=== PATIENT | male | born 1990 | race Caucasian/White ===

== ENCOUNTER → 2023-10-13 13:53 | Outpatient (REF) | payer OTHER, SELFPAY ==
--- NOTE | 2023-10-13 14:00 | CA_ITS ---
Transthoracic Echocardiogram Patient (Last, First, Middle): Rajan Murcia, Gender: Male Date of : 1990 Age: 33 Procedure Date: 10/13/2023 Procedure Type: Transthoracic Echocardiogram Location: OP Height: 193.04 cm Weight: 97.52 kg BSA: 2.28 m2 Heart Rate: bpm BP: 116 / 70 mmHg Angle Shear Operator: AMPARO Referring MD: Cooper Calderon MD Symptoms: R06.00 DYSPNEA I48.92 ATRIAL FLUTTER Study Quality: Adequate ECG Rhythm: Sinus bradycardia Conclusions: - Mildly increased left ventricular cavity size. - The left ventricular systolic function is normal. The calculated ejection fraction is 56% by biplane method. - Mildly increased right ventricular cavity size. - No obvious valvular pathology seen on this study. - Moderate plaque is seen in the sino tubular ridge. - The inferior vena cava is dilated and collapses less than 50% with inspiration. Findings Left Ventricle Mildly increased left ventricular cavity size. There is normal left ventricular wall thickness. The left ventricular systolic function is normal. The calculated ejection fraction is 56% by biplane method. There is no evidence of regional wall motion abnormalities. Diastolic function is normal for age. LV peak GLS -21.6% (normal). Right Ventricle Mildly increased right ventricular cavity size. There is normal right ventricular systolic function. Atria Both atria are normal in size. Aortic Valve There is a normal trileaflet aortic valve. There is no aortic valve stenosis. There is no aortic valve regurgitation. Mitral Valve The mitral valve appears normal. There is no mitral valve regurgitation. There is no mitral valve stenosis. Pulmonic Valve The pulmonic valve is likely normal. Tricuspid Valve There is trace tricuspid valve regurgitation. There is no evidence of pulmonary hypertension. Great Vessels The asc aorta and aortic arch are normal in size. Moderate plaque is seen in the sino tubular ridge. Venous The inferior vena cava is dilated and collapses less than 50% with inspiration. Pericardium/Pleural There is no evidence of pericardial effusion. Prior Study Comparison No prior study available for comparison. Recommendations, Care & Conclusions No obvious valvular pathology seen on this study. Measurements 2D Linear Measurements IVSd: 0.84 0.6-0.9/0.6-1.0 cm LVIDd: 6.01 3.9-5.3/4.2-5.9 cm LVIDd Index: 2.64 2.4-3.2/2.2-3.1 cm/m2 LVIDs: 3.89 2.0-3.6 cm LVPWd: 0.86 0.7-1.1 cm LA Diam: 4.10 2.7-3.8/3.0-4.0 cm LAIDs Index: 1.80 1.5-2.3 cm/m2 LV Mass: 250.51 67-162/88-224 g LV Mass Index: 109.87 43-95/49-115 g/m2 LVOT Diam: 2.50 3.0+(-)1.3 cm 2D Systolic Function EF 4C: 53.70 >55% EF 2C: 55.90 >55% EF BiP: 56.40 >55% Mitral Valve MV Pk E: 0.78 MV PK A: 0.28 MV Decel Time: 264.00 E/A: 2.80 E'Lateral: 15.80 E'Medial: 13.40 E/E' Med: 5.90 E/E' Lat: 5.00 PHT: 77.00 MVA PHT: 2.86 Decel [place]: 2.97 Aortic Valve AoV Pk Gio: 1.27 AoV Mn Gio: 0.82 AoV VTI: 0.30 AoV Pk Grad: 6.00 Aov Mn Grad: 3.00 GARCÍA Cont.VTI: 3.46 LVOT LVOT Pk Gio: 0.87 LVOT Mn Gio: 0.60 LVOT VTI: 0.21 LVOT Pk Grad: 3.00 LVOT Mn Grad: 2.00 LVOT Diam: 2.50 LVOT Area: 4.91 Diastolic Function MV Pk E: 0.78 MV Pk A: 0.28 E/A: 2.80 E'Medial: 13.40 E/E' Med: 5.90 E' Laterial: 15.80 E/E' Lat: 5.00 Right Ventricle TAPSE (mm): 38.40 TVS' Gio: 16.20 Tricuspid Valve TR Pk Gio: 1.18 TR Pk Grad: 6.00 RA Press: 15.00 RVSP: 21.00 Great Vessels Aorta Sinus of Valsalva: 3.46 2.0-3.[address] Ridge: 2.44 1.7-3.4 cm Ao Asc: 3.10 2.1-3.4 cm Ao Arch: 3.00 Updated in Other Vendor System with Status of Final Ammon Marroquin MD electronically signed on 10/13/2023 3:37:26 PM with status of Final
== END ==
LOC: HO.CARD 13:53
PROVIDERS: Visit Provider Emergency Medicine
DX: R06.00 Dyspnea, unspecified (principal); I48.92 Unspecified atrial flutter
CPT/HCPCS: 93306; 93356

== ENCOUNTER → 2023-10-13 14:00 | Outpatient (BNV) | payer OTHER, SELFPAY | PROVIDERS: Visit Provider Internal Medicine | DX: R06.00 Dyspnea, unspecified (principal) | CPT/HCPCS: 93306; 93356 ==